=== PATIENT | male | born 1965 | race Caucasian/White ===

== ENCOUNTER 2019-01-13 12:46 | Emergency (ER) | payer SELFPAY ==
[~2019-01-13] VITALS: Ht 172.7 cm; Wt 72.7 kg
[~2019-01-13 12:46] MED LIST: CYCLOBENZAPRINE10 MG PO; HYDROCODONE-APA1 TAB PO
[2019-01-13 13:23] VITALS: BP 137/92; Ht 172.7 cm; Wt 72.7 kg
== END 2019-01-13 14:55 | disposition left against medical advice (07) ==
LOC: D.ER 12:46
DX: N43.3 Hydrocele, unspecified (principal)